=== PATIENT | female | born 1995 | race Caucasian/White ===

== ENCOUNTER 2022-02-10 21:58 | Emergency (ER) | payer SELFPAY ==
[2022-02-10] MEDS ORDERED: Sodium Chloride 0.9% 1,000 ML IV ONE (22:32)
[2022-02-10] MEDS ORDERED: Sodium Chloride 0.9% 2.5 ML Syringe FLUSH PRN (22:32)
[2022-02-10] MEDS ORDERED: Sodium Chloride 0.9% 10 ML Syringe FLUSH PRN (22:32)
[2022-02-10 23:37] LABS: CARBON DIOXIDE,CO2 27.7 mmol/L (21.0-32.0); POTASSIUM,K 4.2 mmol/L (3.5-5.1)
== END 2022-02-11 00:55 | disposition home or self-care (01) ==
LOC: MW.ED 21:58
DX: K80.50 Calculus of bile duct without cholangitis or cholecystitis without obstruction (principal); Z88.2 Allergy status to sulfonamides
CPT/HCPCS: 36415; 76705; 80053; 81003; 83690; 84703; 85025; 96360; 99285; J3490; J7030; 99283

== ENCOUNTER 2022-02-22 08:24 | Day surgery (SDC) | payer OTHER ==
[~2022-02-22 08:24] MED LIST: Lactated Ringers 1,000 ML IV SCH; cefOXitin 2 GM in Premix Bag 1 BAG IV ONE
[2022-02-22] MEDS ORDERED: HYDROmorphone 1 MG/ML Syringe IVPUSH PRN (08:44)
[2022-02-22] MEDS ORDERED: Morphine 2 MG/ML SYRINGE IVPUSH PRN (08:44)
[2022-02-22] MEDS ORDERED: Naloxone 0.4 MG/ML SDV IVPUSH PRN (08:44)
[2022-02-22] MEDS ORDERED: Metoclopramide 10 MG/2 ML SDV IVPUSH PRN (08:44)
[2022-02-22] MEDS ORDERED: Albuterol 0.083% 2.5 MG/3 ML Neb Soln NEB PRN (08:44)
[2022-02-22] MEDS ORDERED: fentaNYL 50 MCG/ML SDV IVPUSH PRN (08:44)
[2022-02-22] MEDS ORDERED: Ondansetron 4 MG/2 ML SDV IVPUSH PRN (08:44)
[2022-02-22] MEDS ORDERED: Bupivacaine 0.25% 30 ML SDV ONE (09:37)
[2022-02-22] MEDS ORDERED: Water For Injection, Sterile 20 ML ONE ×2 (09:40→11:37)
[2022-02-22] MEDS ORDERED: Dexmedetomidine 200 MCG/2 ML SDV ONE (09:40)
[2022-02-22] MEDS ORDERED: Lidocaine 2% 5 ML SDV ONE (09:57)
[2022-02-22] MEDS ORDERED: fentaNYL 100 MCG/2 ML SDV ONE (09:58)
[2022-02-22] MEDS ORDERED: ceFAZolin 1 GM Vial ONE (10:20)
[2022-02-22] MEDS ORDERED: Bupivacaine 0.5% 30 ML SDV ONE (10:20)
[2022-02-22] MEDS ORDERED: Propofol 200 MG/20 ML SDV ONE (10:28)
[2022-02-22] MEDS ORDERED: Rocuronium Bromide 50 MG/5 ML Syringe ONE (10:32)
[2022-02-22] MEDS ORDERED: Magnesium Sulfate (4.06 MEQ/ML) 5 GM/10 ML SDV ONE (11:09)
[2022-02-22] MEDS ORDERED: cefOXitin 1 GM Vial ONE (11:13)
[2022-02-22] MEDS ORDERED: Indocyanine Green 25 MG SDV ONE (11:14)
[2022-02-22] MEDS ORDERED: Dexamethasone 4 MG/ML 5 ML MDV ONE (11:16)
[2022-02-22] MEDS ORDERED: ePHEDrine 50 MG/ML SDV ONE (11:17)
[2022-02-22] MEDS ORDERED: Sugammadex Sodium 200 MG/2 ML VIAL ONE (11:49)
[2022-02-22] MEDS ORDERED: Ketorolac 30 MG/ML SDV ONE (11:49)
[2022-02-22] MEDS ORDERED: Ondansetron 4 MG/2 ML SDV ONE (11:49)
[2022-02-22] MEDS ORDERED: Morphine 4 MG/ML Syringe IVPUSH PRN (12:34)
[2022-02-22] MEDS ORDERED: Acetaminophen/HYDROcodone 325-5 MG Tab PO PRN (12:34)
[2022-02-22] MEDS ORDERED: Lactated Ringers 1,000 ML IV SCH (12:45)
== END 2022-02-22 13:55 | disposition home or self-care (01) ==
LOC: MW.SDS 08:24
PROVIDERS: ATTEND Surgery
DX: K80.10 Calculus of gallbladder with chronic cholecystitis without obstruction (principal); K82.8 Other specified diseases of gallbladder; J45.909 Unspecified asthma, uncomplicated; Z88.2 Allergy status to sulfonamides; Z87.891 Personal history of nicotine dependence; Z79.899 Other long term (current) drug therapy
CPT/HCPCS: 47562; 81025; J0131; J0694; J1100; J1885; J2405; J2704; J3010; J3475; J3490; J7030; J7120; 00790; 64488; J0690